=== PATIENT | male | born 2000 | race Caucasian/White ===

== ENCOUNTER 2021-04-21 17:46 | Emergency (ER) | payer SELFPAY ==
[~2021-04-21] VITALS: Ht 175.3 cm; Wt 72.6 kg
[~2021-04-21 17:46] MED LIST: NALOXONE HCL 0.4 MG/ML AMP (NARCAN) ONE
[2021-04-21 17:47] VITALS: BP_SYST 121
[2021-04-21 18:14] VITALS: BP_SYST 125
== END 2021-04-21 17:57 | disposition left against medical advice (07) ==
LOC: EDBD 17:46 → SED 17:46
DX: T50.991A Poisoning by other drugs, medicaments and biological substances, accidental (unintentional), initial encounter (principal); J96.00 Acute respiratory failure, unspecified whether with hypoxia or hypercapnia; Y92.89 Other specified places as the place of occurrence of the external cause
CPT/HCPCS: 96374; 99283; J2310